=== PATIENT | male | born 1965 | race Caucasian/White ===

== ENCOUNTER 2019-10-29 09:59 | Emergency (ER) | payer BC ==
[~2019-10-29] VITALS: Ht 170.2 cm; Wt 101.7 kg
[2019-10-29] MEDS ORDERED: HYDROmorphone 1 MG/ML, 1ML INJ ONE (10:33)
[2019-10-29] MEDS ORDERED: ONDANSETRON 2MG/ML, 2ML ONE (10:33)
--- NOTE | 2019-10-29 10:35 | NUR ---
TO CT PER DANIEL
[2019-10-29 10:38] LABS: BASOPHILS # (AUTO) 0.04 x10^3/uL (0-0.1); BASOPHILS % (AUTO) 1 % (0-1); EOSINOPHILS # (AUTO) 0.18 x10^3/uL (0-0.4); EOSINOPHILS % (AUTO) 3 % (1-7); LYMPHOCYTES # (AUTO) 1.29 x10^3/uL (1-3.4); LYMPHOCYTES % (AUTO) 18 % (22-44); MD NO; MEAN CORPUSCULAR HGB CONC 34.3 g/dL (33.2-36.2); MEAN CORPUSCULAR VOLUME 90.5 fL (81-97); MEAN PLATELET VOLUME 7.5 fL (7.4-10.4); MONOCYTES # (AUTO) 0.37 x10^3/uL (0.2-0.8); MONOCYTES % (AUTO) 5 % (2-9); NEUTROPHILS # (AUTO) 5.29 x10^3/uL (1.8-6.8); NEUTROPHILS % (AUTO) 74 % (42-75); PLATELET COUNT 295 x10^3/uL (130-400); RED BLOOD COUNT 5.28 x10^6/uL (4.38-5.82); RED CELL DISTRIBUTION WIDTH 12.8 % (9.4-14.8)
[2019-10-29 10:42] LABS: ALANINE AMINOTRANSFERASE 36 U/L (12-78); ALBUMIN 4.2 g/dL (3.4-5.0); ANION GAP 4 mmol/L (5-15); CALCIUM 9.7 mg/dL (8.5-10.1); CHLORIDE 108 mmol/L (98-107); CREATININE 1.37 mg/dL (0.7-1.3)
[2019-10-29 10:44] LABS: ALKALINE PHOSPHATASE 75 U/L (45-117); TOTAL PROTEIN 7.8 g/dL (6.4-8.2)
[2019-10-29] MEDS ORDERED: SODIUM CHLORIDE FLUSH 10ML SYR IVF ONE (11:00)
[2019-10-29] MEDS ORDERED: ONDANSETRON 2MG/ML, 2ML IVPush ONE (11:00)
[2019-10-29 11:07] LABS: MICROSCOPIC AUTO
[2019-10-29] MEDS: HYDROmorphone 1 MG/ML, 1ML INJ IVPush PRN ×2 (11:19→12:41)
--- NOTE | 2019-10-29 11:21 | NUR ---
PIV INITIATED; 20G LAC. ZOFRAN AND DILAUDID GIVEN PER EMAR. PT C/O LLQ PAIN; STARTED 0600 TODAY. NO PAIN MEDS TAKEN. LAST BM: YESTERDAY. LAST ORAL INTAKE: FLUIDS 0800 TODAY, FOOD LAST NOC. URINATING FREQUENTLY, SMALL AMOUNTS. DENIES PROSTATE PROBLEMS.
[2019-10-29] MEDS ORDERED: NAPR220T77 PO (11:26)
[2019-10-29] MEDS ORDERED: KETOROLAC 30 MG/1 ML IVPush ONE (12:00)
--- NOTE | 2019-10-29 12:44 | NUR ---
REPEAT DILAUDID DOSE GIVEN. PT REPORTS PAIN IS INTERMITTENT.
--- NOTE | 2019-10-29 13:05 | NUR ---
O2 SAT INTERMITTENTLY DROPPING INTO LOW 80'S. OXYGEN 1LNC APPLIED. O2 SAT INCREASED TO 96. WILL TITRATE PRN. SIDE RAILS UP X2, CALL LIGHT W/IN REACH, DAUGHTER IN ROOM.
[2019-10-29] MEDS ORDERED: KETOROLAC 30 MG/1 ML ONE (13:17)
--- NOTE | 2019-10-29 13:22 | NUR ---
TORADOL GIVEN AFTER CONSULTING ERP.
[2019-10-29 14:18] VITALS: BP 111/76
== END 2019-10-29 14:45 ==
LOC: ED 10:49
DX: N13.2 Hydronephrosis with renal and ureteral calculous obstruction (principal); N23 Unspecified renal colic; R31.9 Hematuria, unspecified; N28.1 Cyst of kidney, acquired
CPT/HCPCS: 36415; 74176; 80053; 81001; 85025; 96374; 96375; 96376; 99285; J1170; J1885; J2405